=== PATIENT | female | born 1950 | race African-American/Black ===

== ENCOUNTER 2017-03-31 10:11 | Day surgery (SDC) | payer OTHER ==
[2017-03-27 15:15] VITALS: BMI 24.3
[2017-03-31] MEDS ORDERED: ceFAZolin SODIUM 1 GM VIAL ONE (10:55)
[2017-03-31] MEDS ORDERED: ONDANSETRON 4 MG/2 ML VIAL IVPUSH PRN (11:26)
[2017-03-31] MEDS ORDERED: PROMETHAZINE HCL 25 MG/1 ML VIAL IVPUSH PRN (11:26)
[2017-03-31] MEDS ORDERED: LACTATED RINGERS SOLUTION 1,000 ML IV SCH (11:30)
[2017-03-31] MEDS ORDERED: BUPIVACAINE HCL/PF 0.5% (5MG/ML) 10 ML VIAL ONE (11:37)
--- NOTE | 2017-03-31 11:44 | HP ---
History & Physical Update - History History: No Change - Physical Physical: No Change - Assessment Assessment: No Change - Plan Plan: No Change
[2017-03-31] MEDS ORDERED: oxyCODONE HCL 5 MG TABLET PO PRN (12:10)
[2017-03-31] MEDS ORDERED: PATIENT'S OWN MEDICATION (NON-FORMULARY) (Alendronate Na [Fosamax (Weekly)] 70 MG) PO SCH (12:15)
[2017-03-31] MEDS ORDERED: ROCURONIUM BROMIDE 50 MG/5 ML VIAL ONE (12:18)
[2017-03-31] MEDS ORDERED: PROPOFOL 20 ML ONE (12:18)
[2017-03-31] MEDS ORDERED: MIDAZOLAM HCL 2 MG/2 ML SINGLE DOSE VIAL ONE (12:18)
[2017-03-31] MEDS ORDERED: SODIUM CHLORIDE 0.9% P/F 10 ML VIAL IJ ONE (12:19)
[2017-03-31] MEDS ORDERED: LIDOCAINE HCL/PF 2% SDV 5ML VIAL ONE (12:19)
[2017-03-31] MEDS ORDERED: ceFAZolin SODIUM 1 GM VIAL IVPB ONE (12:36)
[2017-03-31] MEDS ORDERED: DEXAMETHASONE SOD PHOSPHATE 4 MG/1 ML VIAL ONE (12:43)
[2017-03-31] MEDS ORDERED: BUPIVACAINE HCL/PF 0.5% (5MG/ML) 10 ML VIAL IJ ONE (13:11)
[2017-03-31] MEDS ORDERED: GLYCOPYRROLATE 0.2 MG/1 ML VIAL ONE (13:36)
[2017-03-31] MEDS ORDERED: KETOROLAC TROMETHAMINE 30 MG/1 ML VIAL ONE (13:41)
--- NOTE | 2017-03-31 14:10 | SURG ---
Surgery Impregnator Note Impregnator: Grey Olmstead PA-C Date of Service: 03/31/17 Diagnosis: Right adnexal mass & thickened endometrium Procedure: Robotic hysterectomy with bilateral salpingectomy I was present for the entirety of the operative procedure. For further detail, please refer to operative report. Visit type - Case Type Case Type: Scheduled Admission - New patient This patient is new to me today: Yes Date on this admission: 03/31/17
--- NOTE | 2017-03-31 14:14 | OP ---
Operative Note - Note: Operative Date: 03/31/17 Pre-Operative Diagnosis: Right adnexal mass, thickened endometrium Operation: Robotic hysterectomy,BSO Findings: 6 week uterus, right ovary 3.5 cm mass, smooth walled, normal left tube and ovary. Normal appendix. Normal upper abdomen. Normal liver edge and upper abdomen. Post-Operative Diagnosis: Same as Pre-op Anesthesia: General Specimens Removed: uterus, cervix, bilateral tubes and ovaries Estimated Blood Loss (mls): 25 Drains & Tubes with Location: none Operative Report Dictated: Yes
[2017-03-31] MEDS: HYDROmorphone HCL CARPU-JECT 1 MG/1 ML DISP.SYRIN IVPB PRN ×2 (16:58→21:36)
[2017-03-31] MEDS ORDERED: KETOROLAC TROMETHAMINE 30 MG/1 ML VIAL IVPUSH SCH (18:00)
[2017-03-31] MEDS ORDERED: CEFOXITIN SODIUM 1 GM PUSH 1 GM/10 ML DISP.SYRIN IVPUSH ONE (18:00)
[2017-03-31] MEDS ORDERED: CEFOXITIN SODIUM 1 GM in DEXTROSE 5%-WATER - 100 ML IVPB SCH (18:00)
[2017-03-31] MEDS: ACETAMINOPHEN 325 MG TABLET (FP) PO SCH ×2 (18:36→21:41)
[2017-03-31] MEDS: KETOROLAC TROMETHAMINE 30 MG/1 ML VIAL IVPUSH SCH (18:55)
[2017-04-01] MEDS: ACETAMINOPHEN 325 MG TABLET (FP) PO SCH ×7 (01:07→17:33)
[2017-04-01] MEDS: KETOROLAC TROMETHAMINE 30 MG/1 ML VIAL IVPUSH SCH (01:47)
[2017-04-01] MEDS: HYDROmorphone HCL CARPU-JECT 1 MG/1 ML DISP.SYRIN IVPB PRN (05:33)
[2017-04-01] MEDS ORDERED: LEVOTHYROXINE NA 150 MCG TABLET PO SCH (07:00)
[2017-04-01] MEDS: SIMETHICONE 80 MG TAB.CHEW (FP) PO PRN ×3 (09:31→17:32)
[2017-04-01] MEDS ORDERED: ENOXAPARIN NA (PORCINE) 40 MG/0.4 ML DISP.SYRIN SQ SCH (10:00)
[2017-04-01] MEDS ORDERED: ERGOCALCIFEROL (VITAMIN D2) 50,000 UNIT CAPSULE (FP) PO SCH (10:00)
[2017-04-01] MEDS ORDERED: KETOROLAC TROMETHAMINE 30 MG/1 ML VIAL IVPUSH SCH (10:00)
[2017-04-01] MEDS ORDERED: PANTOPRAZOLE 20 MG TABLET (FP) PO SCH (10:00)
[2017-04-01] MEDS ORDERED: [UNRECOGNIZED DRUG - MIXTURE] PO SCH (10:00)
[2017-04-01] MEDS ORDERED: CALCIUM (OYSTER SHELL) 500 MG TABLET (FP) PO SCH (10:00)
[2017-04-01 10:22] LABS: BASO % 0.5 % (0-2.0); MCH 28.8 pg (25.7-33.7); MCHC 31.8 g/dl (32.0-36.0); MEAN CELL VOLUME 90.7 fl (80-96); MEAN PLT VOLUME 9.3 fl (7.5-11.1); NEUT % 79.4 % (42.8-82.8); PLATELET COUNT 220 K/MM3 (134-434); RDW 13.6 % (11.6-15.6); WHITE BLOOD COUNT 8.5 K/mm3 (4.0-10.0)
--- NOTE | 2017-04-01 10:38 | OP ---
DATE OF OPERATION: 03/31/2017 PREOPERATIVE DIAGNOSIS: Right adnexal mass and thickened endometrium. POSTOPERATIVE DIAGNOSIS: Right adnexal mass and thickened endometrium. PROCEDURE: Robotic-assisted total hysterectomy, bilateral salpingo-oophorectomy, and lysis of adhesions. SURGEON: Emily Hernandez MD BORDERER: VINCENT Ivy ANESTHESIA: General endotracheal and local. ESTIMATED BLOOD LOSS: 25 mL COMPLICATIONS: None. INDICATION: This is a 66-year-old 0 with history of a right adnexal mass. It was first seen on an MRI of the hips for hip pain. She denied any abdominal pain. Pelvic ultrasound on in August 2016 showed a normal uterus, left ovary, and normal right ovary with a 3.3-cm cyst. CA-125 on September 04, 2016, was 14.5. CEA, CA19-9, and AFP were normal. OVA1 was 2.9 (normal). Patient denied any postmenopausal vaginal bleeding. On February 26, 2017, patient underwent an endometrial biopsy for complaints of brownish discharge. Endometrium biopsy was insufficient. It showed scant benign endocervical epithelium and mucus. A pelvic ultrasound on March 11, 2017, showed the uterus to measure 3.8 x 3.5 x 2.0 cm. Endometrium was 3 mm. The right adnexa showed a 3.6 x 3.4 x 2.2 cm mass. No free fluid was seen. The patient was counseled regarding surgical management for persistent adnexal mass and insufficient endometrial biopsy. Patient was counseled regarding surgical management. Risks, benefits, indications, alternatives were discussed with the patient. All questions were answered. Informed consent was signed. FINDINGS: Cervix and vagina atrophic. 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 Intraabdominal findings: Uterus was 6 weeks' size and small. Right ovary contained a 3.5-cm, smooth-walled mass. Left tube and ovary appeared normal. The upper abdomen appeared normal. The liver edge was smooth. Diaphragms were clean. The appendix appeared normal. There was no ascites or any evidence of disease. There were filmy adhesions in the posterior cul-de-sac. DESCRIPTION OF PROCEDURE: The patient was taken to the operating room, placed in the dorsal supine position. General endotracheal anesthesia was obtained without difficulty. She was then placed in the dorsal lithotomy position in Bob stirrups and prepped and draped in normal sterile fashion. Yu catheter was placed in the bladder. Speculum was placed in the vagina. It was very difficult given the stenotic vagina. The cervix was grasped with a single-tooth tenaculum, and a figure-of-8 stitch of 0 Vicryl was placed. The cervix was gently dilated, and a [employer] uterine manipulator was then placed. Tenaculum and speculum were then removed. Attention was turned to the patient's abdomen. Next, 5 mL of 0.25% Marcaine was injected into the umbilicus. An 8-mm incision was made with a scalpel. While tenting the anterior abdominal wall, the Veress needle was inserted intra-abdominally, and the abdomen was insufflated with CO2 gas. An 8-mm trocar was placed in the umbilicus, and intraabdominal placement was confirmed by direct visualization with a laparoscope. An additional 8-mm trocar was placed in the left mid-quadrant and right mid-quadrant, and a 5-mm AirSeal port was placed in the left lower quadrant. All trocars were placed under direct visualization after injecting 0.25% Marcaine. A thorough exam of the abdomen and pelvis revealed the above-noted findings. Peritoneal washings were taken using normal saline. The da Janine robot was then docked without difficulty. The right adnexa were elevated. The right ureter was noted to be well away from the field of dissection. The right infundibulopelvic ligament was clamped, cauterized, and transected. This was carried to the broad ligament and the round ligament and the vesicouterine peritoneum anteriorly. The left adnexa were elevated. The left ureter was noted to be well away from the field of dissection. The left infundibulopelvic ligament was clamped, cauterized, and transected. This was carried to the broad ligament and the round ligament and the vesicouterine peritoneum anteriorly. The uterus arteries bilaterally were skeletonized. They were clamped, cauterized, and transected. The cardinal ligaments were serially clamped, cauterized, and transected. The uterosacral ligaments were clamped, cauterized, and transected, and a vaginotomy incision was made circumferentially around the cervix. Uterus, cervix, ovaries, and tubes were passed through the vagina without difficulty. The vaginal cuff was closed in a running continuous fashion using 2-0 V-Loc suture. 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 The pelvis was thoroughly irrigated and noted to be hemostatic. All instruments were removed from the patient's abdomen. The da Janine robot was then undocked. Trocars were removed. Skin was closed with 4-0 Monocryl. Dermabond was applied. The patient was extubated and transferred in stable condition to the PACU. Courtney [id number]
[2017-04-01 10:45] LABS: ANION GAP 10 (8-16); CALCIUM 8.7 mg/dL (8.5-10.1); CO2 23 mmol/L (21-32); CREATININE 0.7 mg/dL (0.55-1.02); GLUCOSE,RANDOM 100 mg/dL (74-106)
--- NOTE | 2017-04-01 14:28 | PN ---
Progress Note (short form) - Note Progress Note: POD#1 Pt seen earlier this am, she was having pain to her right shoulder and abdomen. Passed flatus x 2 yesterday. No nausea and has had sips of clears. Yu removed this am, waiting to void. Vital Signs Period Temp Pulse Resp BP Sys/Anderson Pulse Ox Last 24 Hr 97.5 F-99 F 61-87 16-20 107-147/52-82 99-100 Gen: appears uncomfortable Cv: RRR Lungs: CTA b/l ABD: soft, non-distended, inc tenderness. Right abd tender to palpation. No rebound. Inc c/d/i with dermabond LE: no calf tenderness or swelling noted b/l CBC, BMP 12/13/17 10:00 12/13/17 10:00 A/P:66 yo old female s/p robotic hysterectomy, b/l salpingo-oophrectomy, POD#1 Pt tolerating clears, small amount of flatus passed Continue IV toradol/oral pain managment with oxycodone Oob to chair/ambulate DVT ppx with lovenox SQ/SCDs D/w Dr. Hernandez, if pain improved and tolerating diet plan for discharge to home tonight
[2017-04-01] MEDS ORDERED: KETOROLAC TROMETHAMINE 15 MG/ML VIAL IVPUSH PRN (15:47)
--- NOTE | 2017-04-01 16:32 | PATH ---
Cytology Non-Gynecological Report Patient Name: TABITHA NEAL [facility]. Rec. #: [id number] /Age/Gender: 1950 (Age: 66) / F Account: [id number] Location: [facility] OBS/AED TRAINER Taken: 03/31/2017 Received: 03/31/2017 Reported: 04/01/2017 Physicians: Courtney Betancur MD Specimen(s) Received PELVIC WASHINGS Clinical History Adnexal mass Final Diagnosis PELVIC WASHING FOR CYTOLOGY: SATISFACTORY FOR EVALUATION. NO MALIGNANT CELLS IDENTIFIED. MESOTHELIAL CELLS AND LYMPHOCYTES PRESENT. Electronically Signed Monica Cooper M.D. Gross Description Approximately 30 cc of sterile clear fluid received fresh. Two cytofunnels prepared.
[2017-04-01] MEDS ORDERED: KETOROLAC TROMETHAMINE 30 MG/1 ML VIAL IVPUSH PRN (16:39)
[2017-04-01] MEDS ORDERED: oxyCODONE HCL 5 MG TABLET PO PRN (16:44)
[2017-04-01 18:10] VITALS: BP 110/63; PULSE 68; TEMP 98
--- NOTE | 2017-04-15 15:06 | PATH ---
Surgical Pathology Report Patient Name: TABITHA NEAL [facility]. Rec. #: [id number] /Age/Gender: 1950 (Age: 66) / F Account: [id number] Location: AMBULATORY SURG Taken: 03/31/2017 Received: 03/31/2017 Reported: 04/15/2017 Physicians: Emily Hernandez MD Specimen(s) Received UTERUS,CERVIX,OVARIES Clinical History Pelvic mass Intraoperative Consult Diagnosis Bilateral tubes and ovaries, uterus, cervix, right ovarian mass: Favor mucinous neoplasm, pending definitive classification on permanent section. Dr. 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 UNREMARKABLE FALLOPIAN TUBES, OVARIES AND CERVIX. ATROPHIC ENDOMETRIUM WITH FOCAL REACTIVE ATYPIA. ADENOMYOSIS. Comment: Histologic sections show a benign spindle cell neoplasm with rich vasculature and marked edematous/degenerative changes. Immunohistochemical stains performed and interpreted at [facility] show the tumor is positive for ER, while negative for AE1/3, chromogranin, and synaptophysin. Additional immunohistochemical stains performed at [place], [place] ([id number]) and interpreted at [facility] show the tumor is positive for CD10, SMA, Desmin, WT-1, CD99; while negative for calretinin, KATHY, HMB45, and Inhibin. Beta-catenin staining is membranous. Given the morphology, combined with diffuse expression of desmin and SMA, the findings are consistent with a leiomyoma. CD10 expression is not specific to endometrial stromal tumors and can be seen in benign and malignant smooth muscle neoplasm. Previous endometrial biopsy provides the explanation for a focus of reactive atypia in endometrium. This case was sent for consultation to Dr. Fahad Burkett at [facility], [place], [place] ([phone]). The diagnosis above reflects his opinion. Electronically Signed Monica Cooper M.D. Gross Description Received fresh labeled "uterus, cervix, right ovary," is a 23 g hysterectomy specimen including a uterus with an attached cervix and bilateral attached adnexa. The specimen measures 5.0 cm from superior to inferior, 3.0 cm from left to right and 2.4 cm from anterior to posterior. The serosa is nuñez-pink and smooth. The attached cervix measures 2 cm in length and averages 1.8 cm in diameter. The ectocervix is pink-nuñez, smooth and glistening. The endocervix is unremarkable. The endometrial cavity measures 2.5 cm in length and 1.1 cm from cornu to cornu. The endometrium is nuñez-red and averages 0.1 cm in thickness. The myometrium is nuñez-pink and average is 1.1 cm in thickness. No intramural nodules are identified. The left fimbriated fallopian tube measures 5 cm in length. The outer surface is nuñez-pink with tubal ovarian adhesions and a focal 0.8 cm greatest dimension attached paratubal cyst. Sectioning reveals an unremarkable lumen. The left ovary measures 2.0 x 1.1 x 0.6 cm. The outer surface is nuñez-yellow, convoluted and smooth. Sectioning reveals nuñez-yellow ovarian parenchyma. The right fallopian tube measures 2.5 cm in length and displays tubal ovarian adhesions. No definite fimbria are identified. Sectioning reveals an unremarkable lumen. The right ovary measures 2.0 x 1.0 x 0.6 cm. The outer surface is nuñez-pink with a focal defect. Sectioning reveals nuñez-yellow ovarian parenchyma. There is a 3.3 x 2.1 x 1.8 cm pedunculated mass adjacent to the right adnexa (broad ligament, between the uterine fundus and right ovary). The outer surface of the mass is nuñez-pink and smooth. Sectioning reveals mucinous/gelatinous parenchyma. [employer] sections of the right ovary and pedunculated mass are submitted for frozen section. [employer] sections are submitted in 22 cassettes as follows: 1-frozen section residue of right pedunculated mass; 2-frozen section residue of right ovary; 3-anterior cervix; 4-posterior cervix; 1-6-hteyhfym endomyometrium; 1-3-tyqftfvqk endomyometrium; 9-left fallopian tube fimbria; 10-11-cross sections of entirely submitted left fallopian tube (paratubal cyst in cassette 10); 27-52-zzexesqn submitted left ovary; 14-cross sections of entirely submitted right fallopian tube; 06-49-dlayfwjx submitted right ovary; 66-32-ptcerhwk submitted right pedunculated mass; 23-27 remainder of myometrium. 03/31/2017 saudi03/31/2017
== END 2017-04-01 18:11 | disposition home or self-care (01) ==
LOC: JASU-SURG 10:11 → JASUSAT 10:11 → J3W 16:45 → JASUSAT 04-01 18:11
PROVIDERS: ATTEND Obstetrics & Gynecology Gynecologic Oncology
PROC: 0UT74ZZ Resection of Bilateral Fallopian Tubes, Percutaneous Endoscopic Approach (ICD-10-PCS; 2017-03-31)
PROC: 0UT94ZZ Resection of Uterus, Percutaneous Endoscopic Approach (ICD-10-PCS; principal; 2017-03-31 11:00)
PROC: 0UT24ZZ Resection of Bilateral Ovaries, Percutaneous Endoscopic Approach (ICD-10-PCS; 2017-03-31 11:00)
DX: R93.8 Abnormal findings on diagnostic imaging of other specified body structures (principal); R19.09 Other intra-abdominal and pelvic swelling, mass and lump
CPT/HCPCS: 36415; 80048; 85025; 86850; 86900; 86901; 88108; 88305-TC; 88307-TC; 88331-TC; 88341-TC; 88342-TC; 94010; 94760

== ENCOUNTER 2022-02-02 12:55 | Emergency (ER) | payer OTHER ==
[2022-02-02 13:06] VITALS: TEMP 97.6; BMI 25.7
[2022-02-02 14:05] LABS: BASO % 0.6 % (0-2.0); EOS % 0.3 % (0-4.5); HEMOGLOBIN 13.1 GM/dL (10.7-15.3); LYMPH % 37.6 % (8-40); MCH 28.5 pg (25.7-33.7); MCHC 32.1 g/dl (32.0-36.0); MEAN CELL VOLUME 88.8 fl (80-96); MEAN PLT VOLUME 9.8 fl (7.5-11.1); MONO % 9.8 % (3.8-10.2); NEUT % 51.7 % (42.8-82.8); PLATELET COUNT 226 10^3/uL (134-434); RBC 4.62 M/mm3 (3.60-5.2); RDW 13.9 % (11.6-15.6); WHITE BLOOD COUNT 4.5 K/mm3 (4.0-10.0)
[2022-02-02 14:32] LABS: CHLORIDE 102 mmol/L (98-107); SODIUM 138 mmol/L (136-145)
[2022-02-02 14:34] LABS: CALCIUM 9.9 mg/dL (8.5-10.1); GLUCOSE,RANDOM 76 mg/dL (74-106)
[2022-02-02 14:35] LABS: ALBUMIN 4.1 g/dl (3.4-5.0); BLOOD UREA NITROGEN 17.4 mg/dL (7-18); CO2 28 mmol/L (21-32); MAGNESIUM 2.3 mg/dL (1.8-2.4)
[2022-02-02 14:37] LABS: SGPT/ALT 27 U/L (13-61)
[2022-02-02 14:38] LABS: CREATININE 0.8 mg/dL (0.55-1.3); SGOT/AST 40 U/L (15-37)
[2022-02-02 14:39] LABS: BILIRUBIN,TOTAL 0.6 mg/dL (0.2-1)
[2022-02-02 14:41] LABS: ALK PHOS 80 U/L (45-117); ANION GAP 8 MMOL/L (8-16)
[2022-02-02 16:04] VITALS: BP 128/79; PULSE 65; RESP 17
[2022-02-02] MEDS ORDERED: SODIUM ZIRCONIUM CYCLOSILICATE (LOKELMA) 5 GM PACKET PO ONE (17:10)
[2022-02-02] MEDS ORDERED: SODIUM ZIRCONIUM CYCLOSILICATE (LOKELMA) 5 GM PACKET ONE (17:19)
== END 2022-02-02 17:45 | disposition home or self-care (01) ==
LOC: JER 12:55
DX: E87.5 Hyperkalemia (principal)
CPT/HCPCS: 36415; 80053; 83735; 84132; 85025; 93005; 93010; 99284-25

== ENCOUNTER 2022-02-22 16:10 | Emergency (ER) | payer OTHER ==
[2022-02-22 17:19] VITALS: BP 137/72; PULSE 89; RESP 20; TEMP 98; BMI 26.6
== END 2022-02-22 18:00 | disposition home or self-care (01) ==
LOC: JERFT 16:10
DX: R22.31 Localized swelling, mass and lump, right upper limb (principal)
CPT/HCPCS: 99281-25